=== PATIENT | female | born 1990 | race African-American/Black ===

== ENCOUNTER 2018-01-15 18:02 | Observation (INO) | payer MEDICAID ==
[~2018-01-15] VITALS: Ht 165.1 cm; Wt 81.6 kg
[2018-01-15 19:37] LABS: CLARITY URINE CLEAR (CLEAR); COLOR URINE YELLOW (YELLOW); KETONES URINE NEGATIVE (NEGATIVE); LEUKOCYTE ESTERASE URINE TRACE (NEGATIVE); NITRITE URINE NEGATIVE (NEGATIVE); OCCULT BLOOD URINE NEGATIVE (NEGATIVE); PROTEIN URINE NEGATIVE (NEGATIVE); SPECIFIC GRAVITY URINE 1.011 (1.005-1.030); UROBILINOGEN URINE 0.2 E.U./dL (0.2-1.0)
[2018-01-15] MEDS ORDERED: LACTATED RINGERS 1,000 ML IV SCH (20:00)
[2018-01-15] MEDS ORDERED: CEFAZOLIN 2,000 MG in DEXT 5% WATER 100 ML IV NR (20:00)
== END 2018-01-15 21:07 | disposition home or self-care (01) ==
LOC: ER 18:13 → L&D 18:16
PROVIDERS: ADMIT Obstetrics & Gynecology; ATTEND Obstetrics & Gynecology
DX: O26.893 Other specified pregnancy related conditions, third trimester (principal); R10.30 Lower abdominal pain, unspecified; K62.89 Other specified diseases of anus and rectum; R35.0 Frequency of micturition; Z3A.39 39 weeks gestation of pregnancy
CPT/HCPCS: 81003; 96365; 99281; G0378; J0690; 96360; J7060; J7120

== ENCOUNTER 2018-01-23 00:15 | Inpatient (IN) | payer MEDICAID ==
[~2018-01-23] VITALS: Ht 165.1 cm; Wt 81.6 kg
[2018-01-23] MEDS ORDERED: DEXT 5%/LR + PITOCIN 20UNITS/L 1,000 ML IV SCH ×2 (01:27→23:06)
[2018-01-23] MEDS ORDERED: BUTORPHANOL TARTRATE 2 MG/ML VIAL IV PRN (01:30)
[2018-01-23] MEDS ORDERED: NALOXONE HCL 0.4 MG/ML 1ML VIAL IM PRN (01:30)
[2018-01-23] MEDS ORDERED: PNV1TABL76 MT (01:30)
[2018-01-23] MEDS ORDERED: FERR325T6 PO (01:30)
[2018-01-23] MEDS ORDERED: LIDOCAINE HCL 1% 20ML VIAL (Pyxis) INJ INFIL SCH (01:30)
[2018-01-23 02:00] LABS: CLARITY URINE CLEAR (CLEAR); COLOR URINE YELLOW (YELLOW); KETONES URINE NEGATIVE (NEGATIVE); LEUKOCYTE ESTERASE URINE 2+ (NEGATIVE); NITRITE URINE NEGATIVE (NEGATIVE); OCCULT BLOOD URINE NEGATIVE (NEGATIVE); PROTEIN URINE NEGATIVE (NEGATIVE); SPECIFIC GRAVITY URINE 1.014 (1.005-1.030)
[2018-01-23] MEDS: LACTATED RINGERS 1,000 ML IV SCH ×3 (02:18→10:40)
[2018-01-23 02:35] LABS: BASOPHILS % 0.6 % (0.0-2.0); EOSINOPHILS % 1.8 % (0.0-5.0); HEMATOCRIT. 34.6 % (36.0-48.0); HEMOGLOBIN. 11.7 g/dL (12.0-16.0); LYMPHOCYTES % 26.8 % (20.0-50.0); MEAN CORPUSCULAR HEMOGLOBIN 33.1 pg (28.0-32.0); MEAN CORPUSCULAR VOLUME 98.1 fL (81.0-99.0); MEAN PLATELET VOLUME 10.2 fl (7.4-10.4); NEUTROPHILS % 59.8 % (40.0-76.0); PLATELET 180 x1000/uL (130-400); RED BLOOD CELL COUNT 3.52 mill/uL (4.2-5.4); RED CELL DISTRIBUTION WIDTH 12.6 % (11.6-14.6)
[2018-01-23 03:52] LABS: PARTIAL THROMBOPLASTIN TIME 34.7 sec (23.4-31.0); PROTHROMBIN TIME 9.9 sec (9.1-11.1)
[2018-01-23] MEDS ORDERED: MISOPROSTOL 100MCG TABLET VG SCH (04:00)
[2018-01-23 04:39] LABS: HEPATITIS B SURFACE ANTIGEN NEGATIVE
[2018-01-23] MEDS ORDERED: BUPIVACAINE HCL/NS/PF EPIDURAL 100 ML EP ONE ×3 (06:29→18:54)
[2018-01-23] MEDS ORDERED: BUPIVACAINE HCL/PF 0.25% (2.5MG/ML) 10ML ONE ×2 (06:29→13:18)
[2018-01-23] MEDS ORDERED: FENTANYL CITRATE/PF 50MCG/ML 2ML VIAL ONE ×3 (06:29→19:37)
[2018-01-23] MEDS ORDERED: MAGNESIUM/ALUMINUM HYDROXIDE/SIMETHICONE 30ML UDC PO PRN (07:00)
[2018-01-23 09:56] LABS: *AMPHETAMINES SCREEN URINE NEGATIVE (NEGATIVE); *BARBITURATES SCREEN URINE NEGATIVE (NEGATIVE); *BENZODIAZEPINES SCREEN URINE NEGATIVE (NEGATIVE); *COCAINE SCREEN URINE NEGATIVE (NEGATIVE)
[2018-01-23 09:57] LABS: CANNABINOID URINE SCREEN NEGATIVE (NEGATIVE); METHADONE URINE SCREEN NEGATIVE (NEGATIVE); OPIATES URINE SCREEN NEGATIVE (NEGATIVE); PHENCYCLIDINE URINE SCREEN NEGATIVE (NEGATIVE)
[2018-01-23] MEDS ORDERED: DEXT 5%/LACTATED RINGERS 1,000 ML IV SCH (14:55)
[2018-01-23] MEDS ORDERED: LIDOCAINE HCL/PF 1% 10 MG/ML 5ML VIAL ONE (19:38)
[2018-01-23] MEDS ORDERED: ACETAMINOPHEN WITH CODEINE 300/30MG TABLET PO PRN (23:15)
[2018-01-23] MEDS ORDERED: BENZOCAINE/LANOLIN/ALOE VERA SPRAY TOP PRN (23:15)
[2018-01-23] MEDS ORDERED: RHO(D) IMMUNE GLOBULIN 300 MCG/SYR IM PRN (23:15)
[2018-01-23] MEDS ORDERED: IBUPROFEN 400MG TABLET PO PRN (23:15)
[2018-01-24] VITALS (7 sets, daily range): BP systolic 102–123; BP diastolic 47–62
[2018-01-24] MEDS: IBUPROFEN 800MG TABLET PO PRN ×3 (00:33→20:11)
[2018-01-24 07:22] LABS: HEMATOCRIT. 27.6 % (36.0-48.0); HEMOGLOBIN. 9.3 g/dL (12.0-16.0); MEAN CORPUSCULAR HEMOGLOBIN 33.2 pg (28.0-32.0); MEAN CORPUSCULAR VOLUME 98.2 fL (81.0-99.0); MEAN PLATELET VOLUME 9.9 fl (7.4-10.4); PLATELET 155 x1000/uL (130-400); RED BLOOD CELL COUNT 2.81 mill/uL (4.2-5.4); RED CELL DISTRIBUTION WIDTH 12.7 % (11.6-14.6)
[2018-01-24 13:54] LABS: PLATELET ESTIMATE NORMAL
[2018-01-25] VITALS: BP 112/59
[2018-01-25] MEDS: IBUPROFEN 800MG TABLET PO PRN ×2 (02:19→08:32)
[2018-01-25 04:00] VITALS: BP 104/46
[2018-01-25 08:15] VITALS: BP 110/63
[2018-01-25 08:32] VITALS: BP 110/63
== END 2018-01-25 13:15 | disposition home or self-care (01) | DRG 560 ==
LOC: L&D 00:15 → OBSVTOIN 00:15 → 7EST PP/OB 01-24 01:04
PROVIDERS: ADMIT Obstetrics & Gynecology; ATTEND Obstetrics & Gynecology
PROC: 10E0XZZ Delivery of Products of Conception, External Approach (ICD-10-PCS; 2018-01-23)
PROC: 3E0R3BZ Introduction of Anesthetic Agent into Spinal Canal, Percutaneous Approach (ICD-10-PCS; 2018-01-23)
PROC: 00HU33Z Insertion of Infusion Device into Spinal Canal, Percutaneous Approach (ICD-10-PCS; 2018-01-23)
PROC: 0KQM0ZZ Repair Perineum Muscle, Open Approach (ICD-10-PCS; principal; 2018-01-23 22:50)
DX: O69.1XX0 Labor and delivery complicated by cord around neck, with compression, not applicable or unspecified (principal); D64.9 Anemia, unspecified; O70.1 Second degree perineal laceration during delivery; Z37.0 Single live birth; O99.02 Anemia complicating childbirth; Z3A.40 40 weeks gestation of pregnancy
CPT/HCPCS: 36415; 80305; 86592; 86703; 86762; 86850; 86900; 87340; G0378; J2590; J3010; J3490; J7030; J7120; J7121; A4315

== ENCOUNTER 2018-07-19 13:07 | Emergency (ER) | payer MEDICAID ==
[~2018-07-19] VITALS: Ht 165.1 cm; Wt 75.0 kg
[~2018-07-19 13:07] MED LIST: FERR325T6 PO; PNV1TABL76 MT
[2018-07-19] MEDS ORDERED: KETOROLAC 60MG/2ML VIAL IM ONE (14:15)
[2018-07-19] MEDS ORDERED: DEXAMETHASONE 2MG TABLET PO ONE (14:15)
[2018-07-19] MEDS ORDERED: CLINDAMYCIN HCL 150MG CAPSULE PO ONE (14:15)
[2018-07-19 15:25] VITALS: BP 128/65
== END 2018-07-19 15:27 | disposition home or self-care (01) ==
LOC: ER 13:07
DX: K04.7 Periapical abscess without sinus (principal)
CPT/HCPCS: 96372; 99283; J1885; J8540

== ENCOUNTER 2018-10-01 17:07 | Emergency (ER) | payer MEDICAID ==
[~2018-10-01] VITALS: Ht 165.1 cm; Wt 75.0 kg
[2018-10-01 18:55] VITALS: BP 128/86
[2018-10-01] MEDS ORDERED: KETOROLAC 60MG/2ML VIAL IM ONE (19:00)
[2018-10-01] MEDS ORDERED: IBUPROFEN 800MG TABLET PO ONE (19:00)
== END 2018-10-01 19:14 | disposition home or self-care (01) ==
LOC: ER 18:07
DX: K05.00 Acute gingivitis, plaque induced (principal)
CPT/HCPCS: 81025; 99283; J1885

== ENCOUNTER 2019-02-28 15:14 | Emergency (ER) | payer MEDICAID ==
[~2019-02-28] VITALS: Ht 165.1 cm; Wt 71.0 kg
[2019-02-28 16:18] LABS: CLARITY URINE CLOUDY (CLEAR); COLOR URINE YELLOW (YELLOW); KETONES URINE NEGATIVE (NEGATIVE); LEUKOCYTE ESTERASE URINE 3+ (NEGATIVE); NITRITE URINE POSITIVE (NEGATIVE); OCCULT BLOOD URINE NEGATIVE (NEGATIVE); PROTEIN URINE 1+ (NEGATIVE); SPECIFIC GRAVITY URINE 1.024 (1.005-1.030); UROBILINOGEN URINE 0.2 E.U./dL (0.2-1.0)
[2019-02-28 18:00] VITALS: BP 112/60
== END 2019-02-28 18:02 | disposition home or self-care (01) ==
LOC: ER 15:23
DX: N39.0 Urinary tract infection, site not specified (principal)
CPT/HCPCS: 81003; 81025; 99283

== ENCOUNTER 2020-01-26 22:58 | Emergency (ER) | payer MEDICAID ==
[~2020-01-26] VITALS: Ht 165.1 cm; Wt 64.0 kg
[2020-01-27] MEDS ORDERED: KETOROLAC 30MG/ML VIAL IV STA (00:01)
[2020-01-27 00:24] LABS: BASOPHILS % 0.9 % (0.0-2.0); EOSINOPHILS % 2.9 % (0.0-5.0); HEMATOCRIT. 36.4 % (36.0-48.0); HEMOGLOBIN. 12.2 g/dL (12.0-16.0); LYMPHOCYTES % 35.8 % (20.0-50.0); MEAN CORPUSCULAR HEMOGLOBIN 33.2 pg (28.0-32.0); MEAN CORPUSCULAR VOLUME 98.8 fL (81.0-99.0); MEAN PLATELET VOLUME 9.3 fl (7.4-10.4); MONOCYTES % 9.1 % (2.0-8.0); NEUTROPHILS % 51.3 % (40.0-76.0); PLATELET 264 x1000/uL (130-400); RED BLOOD CELL COUNT 3.68 mill/uL (4.2-5.4); RED CELL DISTRIBUTION WIDTH 12.6 % (11.6-14.6)
[2020-01-27 00:29] LABS: CHLORIDE 108 mEq/L (98-107)
[2020-01-27 00:42] LABS: HCG SCREEN NEGATIVE
[2020-01-27 01:15] VITALS: BP 104/66
== END 2020-01-27 01:44 | disposition home or self-care (01) ==
LOC: ER 22:58
DX: M94.0 Chondrocostal junction syndrome [Tietze] (principal)
CPT/HCPCS: 36415; 71045; 80053; 84484; 84703; 85025; 85379; 93005; 96374; 99285; J1885

== ENCOUNTER 2020-06-07 11:18 | Emergency (ER) | payer MEDICAID ==
[~2020-06-07] VITALS: Ht 165.1 cm; Wt 63.0 kg
[2020-06-07] MEDS ORDERED: KETOROLAC 30MG/ML VIAL IV STA (11:40)
[2020-06-07] MEDS ORDERED: ACETAMINOPHEN 325MG TABLET PO STA (11:40)
[2020-06-07] MEDS ORDERED: SODIUM CHLORIDE 0.9% 1,000 ML IV ONE (11:45)
[2020-06-07] MEDS ORDERED: LIDOCAINE 5% PATCH TOP SCH (11:45)
[2020-06-07 11:59] LABS: BASOPHILS % 0.5 % (0.0-2.0); HEMATOCRIT. 40.6 % (36.0-48.0); HEMOGLOBIN. 13.2 g/dL (12.0-16.0); LYMPHOCYTES % 36.6 % (20.0-50.0); MEAN CORPUSCULAR HEMOGLOBIN 32.4 pg (28.0-32.0); MEAN CORPUSCULAR VOLUME 99.4 fL (81.0-99.0); MEAN PLATELET VOLUME 9.1 fl (7.4-10.4); MONOCYTES % 7.4 % (2.0-8.0); NEUTROPHILS % 47.5 % (40.0-76.0); PLATELET 312 x1000/uL (130-400); RED BLOOD CELL COUNT 4.08 mill/uL (4.2-5.4); RED CELL DISTRIBUTION WIDTH 12.3 % (11.6-14.6)
[2020-06-07 12:09] LABS: D-DIMER 0.29 mg/L FEU (<0.50); PROTHROMBIN TIME 10.4 sec (9.6-11.0)
[2020-06-07 12:10] LABS: CHLORIDE 108 mEq/L (98-107)
[2020-06-07 12:14] LABS: ETHANOL BLOOD < 10 mg/dL
[2020-06-07 12:40] LABS: CLARITY URINE CLOUDY (CLEAR); COLOR URINE YELLOW (YELLOW); KETONES URINE TRACE (NEGATIVE); LEUKOCYTE ESTERASE URINE TRACE (NEGATIVE); NITRITE URINE NEGATIVE (NEGATIVE); OCCULT BLOOD URINE TRACE (NEGATIVE); PROTEIN URINE TRACE (NEGATIVE); SPECIFIC GRAVITY URINE 1.033 (1.005-1.030)
[2020-06-07 12:51] LABS: *AMPHETAMINES SCREEN URINE NEGATIVE (NEGATIVE); *BARBITURATES SCREEN URINE NEGATIVE (NEGATIVE)
[2020-06-07 12:52] LABS: *BENZODIAZEPINES SCREEN URINE NEGATIVE (NEGATIVE); METHADONE URINE SCREEN NEGATIVE (NEGATIVE); OPIATES URINE SCREEN NEGATIVE (NEGATIVE); PHENCYCLIDINE URINE SCREEN NEGATIVE (NEGATIVE)
[2020-06-07 12:57] LABS: *COCAINE SCREEN URINE PRESUMTIVE POSITIVE (NEGATIVE); CANNABINOID URINE SCREEN PRESUMTIVE POSITIVE (NEGATIVE)
[2020-06-07 13:54] VITALS: BP 116/41
[2020-06-07] MEDS ORDERED: IBUP-2029 MT (14:09)
== END 2020-06-07 14:15 | disposition home or self-care (01) ==
LOC: ER 11:38
DX: M94.0 Chondrocostal junction syndrome [Tietze] (principal); R07.89 Other chest pain; F12.10 Cannabis abuse, uncomplicated; F14.10 Cocaine abuse, uncomplicated
CPT/HCPCS: 36415; 71101; 80053; 80305; 80320; 81003; 81025; 83690; 85025; 85379; 85610; 93005; 96361; 96374; 99285; J1885; J7030; Z7610; G0480